=== PATIENT | female | born 1960 | race Hispanic/Latino ===

== ENCOUNTER 2024-06-19 18:47 | Emergency (ER) | payer SELFPAY ==
[~2024-06-19] VITALS: Ht 162.6 cm; Wt 59.9 kg
[2024-06-19 19:26] VITALS: TEMP 97.8
[2024-06-19 19:51] LABS: BASOPHILS % 0.4 % (0.0-1.0); EOSINOPHILS # (AUTO) 0.1 (0.0-0.4); EOSINOPHILS % 0.7 % (0.0-6.0); HEMATOCRIT 39.3 % (34.2-44.1); HEMOGLOBIN 12.9 g/dL (12.0-16.0); LYMPHOCYTES # (AUTO) 2.3 (1.0-3.2); LYMPHOCYTES % 22.2 % (18.0-39.1); MEAN CORPUSCULAR HEMOGLOBIN 30.2 pg (28-32); MEAN CORPUSCULAR HGB CONC 32.8 g/dL (31-35); MONOCYTES # (AUTO) 0.6 (0.2-0.8); MONOCYTES % 5.9 % (4.4-11.3); NEUTROPHILS # (AUTO) 7.2 (2.1-6.9); NEUTROPHILS % 70.6 % (38.7-80.0); PLATELET COUNT 243 x10e3/uL (140-360); RED BLOOD COUNT 4.27 x10e6/uL (3.6-5.1); RED CELL DISTRIBUTION WIDTH 12.4 % (11.7-14.4); WHITE BLOOD COUNT 10.25 x10e3/uL (4.8-10.8)
[2024-06-19 20:00] VITALS: RESP 20
[2024-06-19] MEDS: KETOROLAC TROMETHAMINE 30 MG/ML VIAL IV STA (20:08)
[2024-06-19 20:10] LABS: ANION GAP 14.9 mmol/L (8-16); CALCIUM 10.3 mg/dL (8.4-10.2); CREATININE, SERUM 0.95 mg/dL (0.57-1.11); POTASSIUM 3.9 mmol/L (3.5-5.1)
[2024-06-19] MEDS ORDERED: IOPAMIDOL 370 MG/ML 100 ML INFUS..BTL INJ ONE (20:42)
[2024-06-20] MEDS ORDERED: ULTRAM 50MG50 MG PO (01:19)
[2024-06-20 01:45] VITALS: PULSE 72
[2024-06-20 01:59] VITALS: BP 168/67; O2SAT 100
== END 2024-06-20 01:55 | disposition home or self-care (01) ==
LOC: ER 18:55
DX: N64.4 Mastodynia (principal); N64.52 Nipple discharge
CPT/HCPCS: 36415; 71260; 80048; 85025; 99284; J1885; Q9967